=== PATIENT | male | born 1990 | race Caucasian/White ===

== ENCOUNTER 2024-10-30 13:59 | Emergency (ER) | payer MEDICAID, MEDICARE ==
[~2024-10-30] VITALS: Ht 172.7 cm; Wt 80.9 kg
[~2024-10-30 13:59] MED LIST: CLOT15CR74 TP; KEN0.1O TP
[2024-10-30 14:14] VITALS: BP 106/64; PULSE 109; RESP 19; O2SAT 99
[2024-10-30] MEDS ORDERED: ketorolac trometh 30MG/ML vial 30 MG/ML VIAL IM ONE (14:40)
== END 2024-10-30 15:20 | disposition home or self-care (01) ==
LOC: ER 14:00
DX: S93.401A Sprain of unspecified ligament of right ankle, initial encounter (principal); X50.1XXA Overexertion from prolonged static or awkward postures, initial encounter; Y93.89 Activity, other specified; Y92.89 Other specified places as the place of occurrence of the external cause; Y99.8 Other external cause status
CPT/HCPCS: 73610; 99283; A6449